=== PATIENT | female | born 1950 | race Caucasian/White ===

== ENCOUNTER → 2021-03-25 | Outpatient (CLI) | payer OTHER | LOC: CAT 09:10 | PROVIDERS: ATTEND Internal Medicine Cardiovascular Disease | DX: Z13.6 Encounter for screening for cardiovascular disorders (principal); I25.10 Atherosclerotic heart disease of native coronary artery without angina pectoris; E78.00 Pure hypercholesterolemia, unspecified ==

== ENCOUNTER 2021-05-21 10:34 | Emergency (ER) | payer OTHER, MEDICARE ==
[~2021-05-21] VITALS: Ht 167.6 cm; Wt 81.7 kg
--- NOTE | ~2021-05-21 | EMS ---
[address] [address] EMS Patient Care Report Name: DIMITRIS RIDER Room #: DEP JESS Lawson#: [id number] Admission: 05/21/21 Attend Phys: Discharge: 05/21/21 Date of : 48 Report #: [id number] THIS REPORT FOR: //name// Report Transmitted: 05/21/2021 16:18 EMS Care Summary [facility] Incident [id number] @ 05/21/2021 09:52 Incident [address] [place] [address] Patient DIMITRIS RIDER Female, 71 Years 1950 Patient Address [address] [place] [address] Patient History Hypertension (HTN),Hyperlipidemia,Hypothyroidism,Insomnia, Patient Allergies Penicillin allergy, Patient Medications Levothyroxine, Atorvastatin, Amlodipine, Trazodone, Chief Complaint fell and hurt shoulder Disposition Transported [place] Lights/[place] Reason Falls Transported To [facility] Narrative Dispatched to the above address for a reported fall. Arrived to find pt. sitting upright on carpeted floor, AOx4, calm, wearing pants' belt as sling [address] [address] EMS Patient Care Report Name: DIMITRIS RIDER Room #: DEP ER Reese.#: [id number] Admission: 05/21/21 Attend Phys: Discharge: 05/21/21 Date of : 48 Report #: [id number] supporting left arm, attended to by . Pt. stated she was standing in her home office, caught her foot on her desk chair and fell, extending her left arm out to break her fall. Pt. c/o pain in left shoulder, PMS intact, no deformity noted, denied neck and back pain, denied hitting her head, loss of consciousness and use of blood thinners. Pt's reports giving the pt. hydrocodone just prior to calling 911. Pain medication deferred to ED. Assessment and Hx as charted. Obtained VS, assisted pt. to standing position and moved to cot. Biocom to ED, bedside report and transfer of care to ED staff at [facility]. Initial Vitals @10:18P: 100,BP: 172/115,SpO2: 99, @10:13P: 110,SpO2: 84, @10:21P: 124,SpO2: 100, @10:03P: 107,R: 16,BP: 170/73,Pain: 6/10,GCS: 15,Temp: 98.6F,SpO2: 98,Revised Trauma: 12,[place] Suspected: false Impression Injury of Shoulder or Upper Arm Timeline 09:50,Call Received 09:50,Psap Call 09:52,Dispatched 09:53,En Route 09:58,On Scene 09:59,At Patient 10:03,BP: 170/73 M,PULSE: 107,RR: 16 R,SPO2: 98 Ox,ETCO2: ,BG: ,PAIN: 6,GCS: 15, 10:12,Depart Scene 10:13,BP: / M,PULSE: 110,RR: R,SPO2: 84 Ox,ETCO2: ,BG: ,PAIN: ,GCS: , 10:18,BP: 172/115 M,PULSE: 100,RR: R,SPO2: 99 Ox,ETCO2: ,BG: ,PAIN: ,GCS: , 10:21,BP: / M,PULSE: 124,RR: R,SPO2: 100 Ox,ETCO2: ,BG: ,PAIN: ,GCS: , 10:29,At Destination 10:48,Call Closed Disclaimer v1.1 Copyright 2020 [employer] This EMS Care Summary contains data elements from the applicable legal record (which may be displayed differently). It is designed to provide pertinent information for the following purposes: continuity of care, clinical quality, and state data reporting. The complete legal record is available to ED staff and administrators of the receiving hospital in [employer]'s Patient Tracker. All data is provided "as is."
[2021-05-21 11:41] LABS: HEMATOCRIT 41.6 % (37.0-47.0); HEMOGLOBIN 13.8 gm/dL (12.0-15.0); MCH 26.5 pg (26.0-34.0); MCHC 33.2 g/dL (28.0-37.0); MCV 79.9 fL (80.0-100.0); RBC 5.21 mil/uL (4.20-5.00); RDW 14.6 % (10.5-14.5); WBC 6.4 thou/uL (4.0-11.0)
[2021-05-21 11:47] LABS: CALCIUM 8.8 mg/dL (8.5-10.1); CREATININE 0.9 mg/dL (0.6-1.0); POTASSIUM 3.3 mmol/L (3.5-5.1)
[2021-05-21 11:57] LABS: APTT 25.9 Seconds (24.5-32.8); INR 1.04; PROTIME 11.3 Seconds (10.5-12.1)
[2021-05-21] MEDS ORDERED: HYDROCODON-ACE1 EAC7 PO (13:16)
[2021-05-21 13:49] VITALS: BP 141/72
== END 2021-05-21 13:49 | disposition home or self-care (01) ==
LOC: ER 10:34
PROVIDERS: Emergency Medicine
DX: S42.392A Other fracture of shaft of left humerus, initial encounter for closed fracture (principal); I10 Essential (primary) hypertension; K21.9 Gastro-esophageal reflux disease without esophagitis; E03.9 Hypothyroidism, unspecified; W18.30XA Fall on same level, unspecified, initial encounter; Y93.89 Activity, other specified; Y92.89 Other specified places as the place of occurrence of the external cause; Y99.9 Unspecified external cause status